=== PATIENT | female | born 1940 | race Caucasian/White ===

== ENCOUNTER → 2019-01-29 | Day surgery (SDC) | payer OTHER, MEDICARE ==
--- NOTE | 2019-02-01 08:52 | OP ---
DATE OF OPERATION: 01/29/2019 PREOPERATIVE DIAGNOSIS: Left breast mass at the 11 o'clock position, 9 cm from the nipple. POSTOPERATIVE DIAGNOSIS: Left breast mass at the 11 o'clock position, 9 cm from the nipple. PROCEDURE: Left ultrasound-guided core biopsy with clip placement. ANESTHESIA: Local. ATTENDING SURGEON: Darwin Barrett MD ESTIMATED BLOOD LOSS: Minimal. COMPLICATIONS: None. DESCRIPTION OF PROCEDURE: Patient was made aware of the risks and benefits of the procedure and consented. She was placed in a supine position. Under sterile conditions with 1% lidocaine for local anesthesia, a small shereen was made in the skin. Using a 10-gauge suction biopsy device via lateral approach under ultrasound guidance, multiple cores were obtained and submitted to Pathology. Likewise, under ultrasound guidance, a U-shaped clip was placed into the biopsy region. Well tolerated by patient. Steri-Strip and a sterile bandage were applied. We will contact her with the results. Jeri [id number]
--- NOTE | 2019-02-01 16:57 | PATH ---
Surgical Pathology Report Patient Name: LORI BOSTON [facility]. Rec. #: [id number] /Age/Gender: 1940 (Age: 78) / F Account: [id number] Location: [facility] Taken: 01/29/2019 Received: 01/29/2019 Reported: 02/09/2019 Physicians: Darwin Barrett M.D. Specimen(s) Received LEFT BREAST CORE BIOPSY 11 N 9 Clinical History Non-palpable lesion. Ultrasound findings: Suspicious Final Diagnosis Breast, left, 11:00, 9 cm FN, core biopsy: Invasive ductal carcinoma, moderately differentiated, with few associated calcifications, spanning 0.7 cm in greatest dimension In this material. (See note) Ductal carcinoma in situ (DCIS), Cribriform type, intermediate nuclear grade, with moderate necrosis and associated calcifications. Note: Myoepithelial immunohistochemical markers (SMM-HC and p63, performed at [facility]) demonstrate the lack of myoepithelial cells in the invasive carcinoma. The carcinoma shows strong membranous positivity for E-cadherin. These findings support the diagnosis. Results of ER and WY studies performed on block 1 at [facility] are as follows: ER (clone [id number] mouse monoclonal antibody by [employer]): > 95 % nuclear staining with strong intensity (positive). WY (clone16 mouse monoclonal antibody by [employer]): > 95 % nuclear staining with strong intensity (positive). Results of Her2 and Ki67 studies will be reported separately in an addendum. Positive and negative controls (internal if applicable) show appropriate results. Formalin fixation and cold ischemic times are within current ASCO/CAP recommendations for ER, WY and Her2 testing. Electronically Signed Jennifer Pinzon M.D. Addendum Reported: 02/02/2019 Addendum Diagnosis Results of Her2 (IHC) & Ki-67 studies performed on block 1 at [place], [place] ([id number]) are as follows: Her2 IHC (EP3 from [employer], formerly known as [id number], using Prather Polymer Refine detection kit): 1+ (negative). Ki-67: 1-2% (low proliferative index). Positive and negative controls (internal if applicable) show appropriate results. Jennifer Pinzon M.D. Gross Description . Received in formalin, labeled "left breast, 11:00, 9 cm fn" are multiple fragments of light berry and yellow, berry, soft tissue admixed with blood clot having an aggregate of 2.2 x 1.5 x 0.2 cm. Entirely submitted in two cassettes. Time to formalin fixation: < 1 minute Total formalin fixation time: approximately 6 hours AE/01/29/2019 ebram/01/29/2019
== END | disposition home or self-care (01) ==
LOC: FRADUS-SUR 13:34
PROVIDERS: ATTEND Surgery Surgical Oncology
PROC: 0HBU3ZX Excision of Left Breast, Percutaneous Approach, Diagnostic (ICD-10-PCS; principal; 2019-01-29)
DX: C50.212 Malignant neoplasm of upper-inner quadrant of left female breast (principal); Z17.0 Estrogen receptor positive status [ER+]; N63.22 Unspecified lump in the left breast, upper inner quadrant; N64.89 Other specified disorders of breast
CPT/HCPCS: 19083; 87899; 88305-TC; 88341-TC; 88342-TC; A4648

== ENCOUNTER 2019-02-19 09:37 | Day surgery (SDC) | payer OTHER, MEDICARE ==
--- NOTE | 2019-02-15 11:01 | HP ---
Admitting History and Physical - Primary Care Physician PCP: Darwin Barrett - Admission Chief Complaint: Left breast cancer History of Present Illness: 78 year old postmenapausal femlae with H/O right breast partial mastectomy for high grade DCIS ER+ no endocrine treatment, +Radiation in 2004. Now presents with mammogram wnl but Us showed left 9mm mass at 11:00 9cm fn Birad 4. US core bx left breast 01/29/2019 showed invasive ductal carcinoma [place]+ HER2-. History Source: Patient Limitations to Obtaining History: No Limitations - Past Medical History Cardiovascular: Yes: HTN, Other (palpitations/?arythmia) - Past Surgical History Past Surgical History: Yes: Appendectomy Additional Past Surgical History: Right breast wide excision for DCIS refused endocrine therapy +RT.2004 right core bx 2011 pilonodal cyst colon resection polyp 2001 right wrist ganglionic cyst - Smoking History Smoking history: Never smoked Have you smoked in the past 12 months: No - Alcohol/Substance Use Hx Alcohol Use: No Home Medications - Allergies Allergies/Adverse Reactions: Allergies Allergy/AdvReac Type Severity Reaction Status Date / Time cortisone Allergy Verified 02/15/19 11:05 - Home Medications Home Medications (free text): metoprolol Family Medical History Family Hx Cancer: Grandmother (maternal) (breast ca 60), Sister (breast ca with two recurrences and mets 60) Other Family History: mat aunt leukemia. mat aunt hodgkins lymphoma. pat uncle leukemia. mat GF lip cancer Physical Examination Constitutional: Yes: Well Nourished Breast(s): Yes: Other (Core biopsy changes left reast no palpablemass or adenopahty, right breast healed incision no recurrences.) Problem List - Problems (1) Breast cancer, left breast Code(s): C50.912 - MALIGNANT NEOPLASM OF UNSPECIFIED SITE OF LEFT FEMALE BREAST Qualifiers: Breast location: upper inner quadrant of breast Estrogen receptor status: positive Patient sex: female Qualified Code(s): C50.212 - Malignant neoplasm of upper-inner quadrant of left female breast; Z17.0 - Estrogen receptor positive status [ER+] Assessment/Plan Left breast wide excision with mammogram needle localization ,sentenel node biopsy, possible axillary node dissection, lymphoscintogram
[2019-02-15 17:06] VITALS: BMI 36.3
[2019-02-19] MEDS ORDERED: KETOROLAC TROMETHAMINE 30 MG/1 ML VIAL IVPUSH PRN (12:48)
[2019-02-19] MEDS ORDERED: ONDANSETRON 4 MG/2 ML VIAL IVPUSH PRN ×2 (12:48→16:00)
[2019-02-19] MEDS ORDERED: DEXTROSE 5%-0.45% SALINE 1,000 ML IV SCH (13:00)
[2019-02-19] MEDS ORDERED: LIDOCAINE HCL 1%, 10 MG/ML (20ML VIAL) ONE (13:56)
[2019-02-19] MEDS ORDERED: BUPIVACAINE HCL/PF 2.5 MG/ML - 30 ML VIAL IJ ONE (13:56)
[2019-02-19] MEDS ORDERED: DEXAMETHASONE SOD PHOSPHATE 4 MG/1 ML VIAL ONE (14:01)
[2019-02-19] MEDS ORDERED: ONDANSETRON 4 MG/2 ML VIAL ONE ×3 (14:01→16:12)
[2019-02-19] MEDS ORDERED: PROPOFOL 20 ML ONE ×2 (14:01)
[2019-02-19] MEDS ORDERED: MIDAZOLAM HCL 2 MG/2 ML SINGLE DOSE VIAL ONE ×2 (14:04→14:24)
[2019-02-19] MEDS ORDERED: ACETAMINOPHEN INJECTION 100 ML IVPB ONE (14:07)
[2019-02-19] MEDS ORDERED: ceFAZolin SODIUM 1 GM VIAL ONE (14:21)
[2019-02-19] MEDS ORDERED: ISOSULFAN BLUE 10 MG/ML VIAL SQ ONE (14:35)
[2019-02-19] MEDS ORDERED: oxyCODONE HCL 5 MG TABLET PO PRN (16:00)
[2019-02-19] MEDS ORDERED: LACTATED RINGERS SOLUTION 1,000 ML IV SCH (16:00)
--- NOTE | 2019-02-19 17:05 | OP ---
DATE OF OPERATION: 02/19/2019 PREOPERATIVE DIAGNOSIS: Left breast cancer. POSTOPERATIVE DIAGNOSIS: Left breast cancer. PROCEDURE: Left mammographically localized partial mastectomy with sentinel lymph node biopsy. ANESTHESIA: General intubated. ATTENDING SURGEON: Cielo Sparks MD TILE MECHANIC: CASSIE Martinez ESTIMATED BLOOD LOSS: Minimal. COMPLICATIONS: None. DESCRIPTION OF PROCEDURE: Patient was made aware of the risks and benefits of the procedure and consented. Preoperatively, she was went to the radiology suite where a needle was placed in the indexed lesion. She was then placed in a supine position, and after general anesthesia was induced, the patient was intubated, 3 mL of 1% Isosulfan Blue was locally infiltrated into the peritumoral tissues. The operative site was then prepped and draped in the usual sterile fashion. Waiting approximately 10 minutes with gentle manual compression, a curvilinear incision was made in the left axilla. Using blunt and sharp dissection, tissues were dissected to the axillary fat where a cluster of blue lymph nodes were identified. This was surgically excised and submitted for permanent sectioning. Investigation of the rest of the axilla revealed no suspicious lymph nodes or blue lymph nodes. The wound was copiously irrigated with normal saline. Hemostasis maintained by electrocautery. The wound was then closed with deep 3-0 Vicryl followed by a running subcuticular 4-0 Monocryl. The breast was then approached. A curvilinear incision was made next to the needle. Using electrocautery, thick skin flaps were made. The needle was withdrawn through the puncture wound, a wire through the wound. Tissues around the wire were then sharply excised and submitted with a short suture superior, long suture lateral. Specimen radiograph confirmed the presence of the indexed lesion, and the specimen was submitted to Pathology. Additional segments were taken deep superior, medial, lateral, superior, and inferior with clips at the new margins. The wound was copiously irrigated with normal saline. Hemostasis maintained by electrocautery. The wound was then closed with multiple figure of eight sutures of 2-0 Vicryl followed by interrupted subdermal 3-0 Vicryl followed by a running subcuticular 4-0 Monocryl. Steri-Strips, sterile dressing, and a compression bra were then applied, and the patient, having tolerated the procedure well, was transferred to the recovery room in excellent condition. CIELO NGUYEN M.D. [id number]
[2019-02-19 17:46] VITALS: BP 129/67; PULSE 72; TEMP 98.2
--- NOTE | 2019-02-24 15:59 | PATH ---
Surgical Pathology Report Patient Name: LORI BOSTON [facility]. Rec. #: [id number] /Age/Gender: 1940 (Age: 78) / F Account: [id number] Location: [facility] Taken: 02/19/2019 Received: 02/19/2019 Reported: 02/24/2019 Physicians: Darwin Barrett M.D. Specimen(s) Received A: LEFT BREAST WIDE EXCISION B: LEFT AXILLARY SENTINEL NODE C: LEFT BREAST ANTERIOR MARGIN D: LEFT BREAST DEEP MARGIN E: LEFT BREAST MEDIAL MARGIN F: LEFT BREAST LATERAL MARGIN G: LEFT BREAST INFERIOR MARGIN H: LEFT BREAST SUPERIOR MARGIN Clinical History Invasive Final Diagnosis A. BREAST, LEFT, WIDE EXCISION: INVASIVE DUCTAL CARCINOMA, MODERATELY DIFFERENTIATED (TUBULE SCORE: 3/3, NUCLEAR GRADE: 2/3, MITOTIC SCORE: 1/3; TOTAL SUSANNE SCORE: 6/9). INVASIVE CARCINOMA SPANS 8 MM IN GREATEST MICROSCOPIC DIMENSION. EXTENSIVE DUCTAL CARCINOMA IN SITU (DCIS), CRIBRIFORM AND MICROPAPILLARY TYPES, INTERMEDIATE NUCLEAR GRADE, WITH MODERATE NECROSIS ADMIXED WITH INVASIVE CARCINOMA. NO LYMPHOVASCULAR INVASION IDENTIFIED. SURGICAL MARGINS ARE UNINVOLVED BY CARCINOMA; INVASIVE CARCINOMA AND DCIS ARE 8 MM FROM CLOSEST SUPERIOR MARGIN. SEE SPECIMEN C-H FOR FINAL MARGINS. REMAINDER OF BREAST PARENCHYMA SHOWS ATYPICAL AND USUAL DUCTAL HYPERPLASIA, STROMAL FIBROSIS, MICROCYSTS, COLUMNAR CELL CHANGES, SCLEROSING ADENOSIS, AND ASSOCIATED MICROCALCIFICATIONS. PRIOR BIOPSY SITE CHANGES ARE PRESENT. PATHOLOGIC STAGE (pTNM): pT1b pN0(sn). SEE INVASIVE CARCINOMA CASE SUMMARY BELOW. B. AXILLARY SENTINEL NODE, LEFT, EXCISION: ONE LYMPH NODE NEGATIVE FOR CARCINOMA (0/1). C. BREAST, LEFT, ANTERIOR MARGIN, EXCISION: BENIGN BREAST PARENCHYMA. D. BREAST, LEFT, DEEP MARGIN, EXCISION: BENIGN BREAST PARENCHYMA. E. BREAST, LEFT, MEDIAL MARGIN, EXCISION: BENIGN BREAST PARENCHYMA. F. BREAST, LEFT, LATERAL MARGIN, EXCISION: BENIGN BREAST PARENCHYMA. G. BREAST, LEFT, INFERIOR MARGIN, EXCISION: BENIGN BREAST PARENCHYMA. H. BREAST, LEFT, SUPERIOR MARGIN, EXCISION: BENIGN BREAST PARENCHYMA. Comment: Immunohistochemical stains performed and interpreted at [facility] show myoepithelial markers (p63 and SMM-HC) are negative in areas of invasive carcinoma, while retained in DCIS. Invasive carcinoma is positive for E-Cadherin supportive of ductal phenotype. Positive and negative controls (internal if applicable) show appropriate results. Comments Breast Invasive Carcinoma: Surgical Pathology Case Summary (Based on AJCC TNM 8 th edition) Procedure _X_ Excision (less than total mastectomy) Specimen Laterality _X_ Left Tumor Size _X__ Greatest dimension of largest invasive focus >1 mm (millimeters): 8 mm Histologic Type _X_ Invasive carcinoma of no special type (ductal, not otherwise specified) Histologic Grade (Penn Laird Histologic Score) Glandular (Acinar)/Tubular Differentiation _X__ Score 3 (<10% of tumor area forming glandular/tubular structures) Nuclear Pleomorphism _X_ Score 2 Mitotic Rate _X_ Score 1 Overall Grade _X_ Grade 2 (scores of 6) Tumor Focality _X__ Single focus of invasive carcinoma Ductal Carcinoma In Situ (DCIS) _X__ DCIS is present in specimen __X_ Positive for extensive intraductal component (EIC) Margins Invasive Carcinoma Margins _X__ Uninvolved by invasive carcinoma Distance from closest margin (millimeters): 8 mm from superior margin on wide excision (A); negative on final margin (H) Closest margin: Superior DCIS Margins _X__ Uninvolved by DCIS Distance from closest margin (millimeters): 8 mm from superior margin on wide excision (A); negative on final margin (H) Closest margin: Superior Regional Lymph Nodes _X__ Uninvolved by tumor cells Number of Lymph Nodes Examined: 1 Number of Combs Nodes Examined: 1 Treatment Effect _X_ No known presurgical therapy Lymphovascular Invasion _X_ Not identified Pathologic Stage Classification (pTNM, AJCC 8th Edition) Primary Tumor (Invasive Carcinoma) (pT) _X__ pT1b: Tumor >5 mm but =10 mm in greatest dimension Category (pN) _X__ pN0: No regional lymph node metastasis identified or ITCs only Biomarker Studies Results of ER and IN studies performed on this specimen on prior biopsy () at [facility] are as follows: ER (clone [id number] mouse monoclonal antibody by [employer]): >95% nuclear staining with strong intensity (Positive). IN (clone16 mouse monoclonal antibody by [employer]): >95% nuclear staining with strong intensity (Positive). Results of Her2 (IHC) & Ki-67 studies performed on specimen on prior biopsy () at [place], [place] ([id number]) are as follows: Her2 IHC (EP3 from [employer], formerly known as [id number], using Prather Polymer Refine detection kit): 1+ (Negative). Ki67: 1-2% (Low proliferative index). Electronically Signed Roshni Shin M.D. Gross Description A. Received in formalin, labeled "left breast wide excision," is a 6.0 x 5.3 x 2.7 cm. berry-yellow, irregular, portion of fibroadipose tissue. There is no needle localization wire present. There is a short suture marking the superior aspect and a long suture marking the lateral aspect, per the surgeon. There is no skin or nipple present. The specimen is inked as follows: Superior blue; inferior green; anterior and lateral red; medial yellow; deep black. The specimen is serially sectioned from anterior to deep. Sectioning reveals a 1.8 x 1.5 x 1.2 cm berry, firm, hemorrhagic, ill-defined mass at 0.5 cm from the superior margin. The mass is 0.8 cm from the lateral margin. The remaining margins appear clear of the mass. Extruding Press Operator sections are submitted in 9 cassettes as follows: 1-full face section of mass with superior margin; 2-additional mass with superior margin; 3-mass with superior and lateral margins; 4-additional lateral margin; 5-mass with superior and inferior margins; 6-additional inferior margin; 7-medial margin; 8-anterior margin; 9-deep margin. Time to formalin fixation: 5 minutes Total formalin fixation time: Approximately 75 hours. B. Received in formalin labeled "left axillary sentinel node," is a 1.8 x 0.9 x 0.6 cm lymph node with attached fat. The specimen is bisected and entirely submitted in 2 cassettes. C. Received in formalin labeled "left breast anterior margin," is a 3.1 x 2.5 x 1.0 cm portion of fibroadipose tissue with a clip marking the new margin, per the surgeon. The new margin is inked green and the specimen is serially sectioned. The specimen is entirely and separately submitted in 4 cassettes. D. Received in formalin labeled "left breast deep margin," is a 4.0 x 3.0 x 1.2 cm portion of fibroadipose tissue with a clip marking the new margin, per the surgeon. The new margin is inked green and the specimen is serially sectioned. The specimen is entirely and sequentially submitted in 5 cassettes. E. Received in formalin labeled "left breast medial margin," is a 2.1 x 2.0 x 0.4 cm portion of fibroadipose tissue with a clip marking the new margin, per the surgeon. The new margin is inked green and the specimen is serially sectioned. The specimen is entirely submitted in 2 cassettes. F. Received in formalin labeled "left breast lateral margin," is a 2.3 x 1.5 x 0.5 cm portion of fibroadipose tissue with a clip marking the new margin, per the surgeon. The new margin is inked green and the specimen is serially sectioned. The specimen is entirely submitted in 2 cassettes. G. Received in formalin labeled "left breast inferior margin," is a 2.0 x 1.8 x 0.7 cm portion of fibroadipose tissue with a clip marking the new margin, per the surgeon. The new margin is inked green and the specimen is serially sectioned. The specimen is entirely submitted in 2 cassettes. H. Received in formalin labeled "left breast superior margin," is a 2.7 x 2.0 x 0.6 cm portion of fibroadipose tissue with a clip marking the new margin, per the surgeon. The new margin is inked green and the specimen is serially sectioned. The specimen is entirely and sequentially submitted in 3 cassettes. 02/22/2019 [facility]02/22/2019
== END 2019-02-19 17:50 | disposition home or self-care (01) ==
LOC: FASU 09:37
PROVIDERS: ATTEND Surgery Surgical Oncology
PROC: 0HBU0ZZ Excision of Left Breast, Open Approach (ICD-10-PCS; principal; 2019-02-19 14:52)
DX: C50.212 Malignant neoplasm of upper-inner quadrant of left female breast (principal); Z17.0 Estrogen receptor positive status [ER+]; Z90.11 Acquired absence of right breast and nipple; Z92.3 Personal history of irradiation; I10 Essential (primary) hypertension
CPT/HCPCS: 19281; 19301; 38525; 88307-TC; 88341-TC; 88342-TC; 94760; J0131